=== PATIENT | male | born 1980 | race Caucasian/White ===

== ENCOUNTER 2017-05-17 11:30 | Emergency (ER) | payer OTHER ==
[~2017-05-17] VITALS: Ht 182.9 cm; Wt 108.0 kg
[2017-05-17 12:42] LABS: BASOPHIL % 0.4 % (0-2); PLATELET COUNT 198 x10^3mcL (130-400); RED CELL DISTRIBUTION WIDTH 13.4 % (11.5-14.5)
[2017-05-17 12:45] LABS: CALCIUM 9.8 mg/dL (8.5-10.1); CARBON DIOXIDE 32.2 mmol/L (21-32); CHLORIDE SERUM 101 mmol/L (98-107); CREATININE SERUM 0.9 mg/dL (0.7-1.3); GFR1 > 60 mL/min; GLUCOSE SERUM 103 mg/dL (74-106); POTASSIUM SERUM 4.2 mmol/L (3.5-5.1); SODIUM SERUM 141 mmol/L (136-145)
[2017-05-17 12:49] LABS: ALBUMIN 4.4 g/dL (3.4-5.0); ALKALINE PHOSPHATASE 79 U/L (46-116); ALT/SGPT 54 U/L (16-63); AST/SGOT 21 U/L (15-37); BILIRUBIN TOTAL 0.4 mg/dL (0.20-1.00)
[2017-05-17 12:54] LABS: TOTAL PROTEIN, SERUM 8.4 g/dL (6.4-8.2)
[2017-05-17 13:04] VITALS: BP 121/82
== END 2017-05-17 14:20 | disposition home or self-care (01) ==
LOC: ED 11:30
PROVIDERS: Emergency Medicine
DX: G47.00 Insomnia, unspecified (principal); R25.3 Fasciculation
CPT/HCPCS: 36415

== ENCOUNTER 2017-07-17 09:27 | Emergency (ER) | payer OTHER ==
[~2017-07-17] VITALS: Ht 182.9 cm; Wt 104.3 kg
[2017-07-17 09:30] VITALS: Ht 182.9 cm; Wt 104.3 kg
[2017-07-17 10:50] LABS: CARBON DIOXIDE 28.9 mmol/L (21-32); CHLORIDE SERUM 108 mmol/L (98-107); CREATININE SERUM 0.8 mg/dL (0.7-1.3); GFR1 > 60 mL/min; GLUCOSE SERUM 104 mg/dL (74-106); POTASSIUM SERUM 4.4 mmol/L (3.5-5.1); SODIUM SERUM 142 mmol/L (136-145)
[2017-07-17 10:54] LABS: ALBUMIN 3.8 g/dL (3.4-5.0); ALKALINE PHOSPHATASE 76 U/L (46-116); ALT/SGPT 47 U/L (16-63); AST/SGOT 17 U/L (15-37); BASOPHIL % 0.7 % (0-2); BILIRUBIN TOTAL 0.4 mg/dL (0.20-1.00); PLATELET COUNT 185 x10^3mcL (130-400); RED CELL DISTRIBUTION WIDTH 13.6 % (11.5-14.5); TOTAL PROTEIN, SERUM 7.3 g/dL (6.4-8.2)
[2017-07-17 13:49] VITALS: BP 122/68
== END 2017-07-17 13:49 | disposition home or self-care (01) ==
LOC: ED 09:27
PROVIDERS: Emergency Medicine
DX: R07.89 Other chest pain (principal); R20.2 Paresthesia of skin
CPT/HCPCS: 36415; 83880; Q0092